=== PATIENT | male | born 2000 ===

== ENCOUNTER 2021-01-21 23:52 | Inpatient (IN) ==
[2021-01-22 00:59] LABS: ABS Eosinophils 0.1 10^3/ul (0-0.6); ABS Lymphocytes 1.1 10^3/ul (1.0-4.8); ABS Monocytes 0.6 10^3/ul (0-0.8); Eosinophil % 0.8 %; Hematocrit 43 % (42-52); Hemoglobin 14.8 g/dL (14.0-18.0); Lymphocyte % 11.4 %; Mean Corpuscular HGB Conc 35 g/dL (31-36); Mean Corpuscular Hemoglobin 27 pg (27-31); Mean Corpuscular Volume 79 fL (80-94); Mean Platelet Volume 7.7 fL (7.4-10.4); Platelet Count 257 10^3/uL (150-450); Red Cell Distribution Width 15 % (10-15); White Blood Count 9.8 10^3/uL (3.5-10.8)
[2021-01-22 01:12] LABS: ALT 13 U/L (7-52); AST 19 U/L (13-39); Albumin/Globulin Ratio 2.1 (1-3); Alkaline Phosphatase 38 U/L (35-149); Anion Gap 9 mmol/L (2-11); Blood Urea Nitrogen 10 mg/dL (6-24); CO2 Carbon Dioxide 25 mmol/L (22-32); Calcium 9.2 mg/dL (8.6-10.3); Chloride 109 mmol/L (101-111); Globulin 2.4 g/dL (2-4); Glucose 94 mg/dL (70-100); Potassium 3.6 mmol/L (3.5-5.0); Sodium 143 mmol/L (135-145); Total Protein 7.4 g/dL (6.4-8.9)
[2021-01-22 01:33] LABS: Acetaminophen < 15 mcg/mL; Alcohol, S 200 mg/dL (<13); Salicylate < 2.50 mg/dL (<30)
[2021-01-22 01:47] LABS: TSH Ultra Thyroid Stim Horm 1.57 mcIU/mL (0.34-5.60)
[2021-01-22 07:46] LABS: Urine Appearance Clear; Urine Bilirubin Negative (Negative); Urine Blood Negative (Negative); Urine Color Yellow; Urine Glucose Negative (Negative); Urine Ketones Trace (Negative); Urine Nitrite Negative (Negative); Urine Protein Negative (Negative); Urine Specific Gravity 1.025 (1.002-1.030); Urine Urobilinogen Negative (Negative)
[2021-01-22 08:23] LABS: Urine Benzodiazepine Screen None Detected (None Detect); Urine Cannabinoids Screen None Detected (None Detect); Urine Opiates Screen None Detected (None Detect)
[2021-01-22] MEDS ORDERED: Al Hydrox/Mg Hydrox/Simet LIQ 30 ML UDC PO PRN (11:15)
[2021-01-22 13:34] LABS: Rapid COVID-19 Molecular Undetected (Undetected)
[2021-01-23 08:26] LABS: HDL Cholesterol 65.5 mg/dL
[2021-01-23] MEDS ORDERED: Vitamin THERAPEUTIC TAB PO SCH (09:00)
[2021-01-23 09:18] VITALS: BP 121/65
== END 2021-01-23 15:35 | disposition home or self-care (01) | DRG 897 ==
LOC: ED 23:52 → EDHOLD 01-22 11:35 → BSU 01-22 14:10
PROVIDERS: ADMIT Psychiatry & Neurology Psychiatry; ATTEND Student in an Organized Health Care Education/Training Program